=== PATIENT | male | born 1970 | race African-American/Black ===

== ENCOUNTER 2017-07-28 12:04 | Observation (INO) | payer SELFPAY ==
[~2017-07-28] VITALS: Ht 175.3 cm; Wt 127.2 kg
[~2017-07-28 12:04] MED LIST: COUMADIN7.5 MG PO; ENDOCET 5-3251 EACH PO; FLEXERIL10 MG PO; HYDROCODON-ACE1 EAC7 PO; IBUPROFEN800 MG PO; IRON325 M1 PO; LISINOPRIL20 MG PO; MEDROL DOSEPAK4 MG PO; NAPROXEN500 MG PO; NITROGLYCERIN0.4 MG SL; TRAMADOL HCL50 MG PO; ULTRAM50 MG PO
[2017-07-28 12:49] LABS: HEMATOCRIT 48.3 % (38.0-50.0); MCH 29.7 PG (29.0-34.0); MCHC 33.5 G/DL (30.0-36.0); MCV 88.5 FL (86-99); MEAN PLAT.VOLUME 9.5 uM^3 (9.0-12.4); PLATELET COUNT 258 K/uL (156-360); RBC DIS.WIDTH-CV 12.3 % (11.8-14.6); RBC DIS.WIDTH-SD 39.7 % (39-53); RED BLOOD COUNT 5.46 M/uL (4.00-5.50); WHITE BLOOD COUNT 11.2 K/uL (4.1-10.2)
[2017-07-28 12:58] LABS: CHLORIDE 103 mEq/L (99-109); POTASSIUM 4.3 mEq/L (3.7-5.4); SODIUM 141 mEq/L (136-147)
[2017-07-28 13:00] LABS: GLUCOSE 97 mg/dL (70-99)
[2017-07-28 13:01] LABS: ANION GAP 13 MEQ/L (2-14)
[2017-07-28 13:04] LABS: GFR ESTIMATE (CALCULATED) > 59 mL/min/; UREA NITROGEN (BUN) 13 mg/dL (9-23)
[2017-07-28 13:10] LABS: TROP-I INTERPRETATION NEGATIVE; TROPONIN-I 0.02 ng/mL (0.0-0.30)
[2017-07-28] MEDS ORDERED: HYDROCHLOROTHIA25 MG PO (17:28)
[2017-07-28] MEDS ORDERED: DAILY VALUE1 EACH PO (17:28)
[2017-07-28 18:33] LABS: HDL CHOLESTEROL 54 MG/DL (Desirable>=40); LDL CHOLESTEROL 152 mg/dL (Desirable<100); NON-HDL CHOLESTEROL 163 mg/dL (Desirable<160); TOTAL CHOLESTEROL 217 mg/dL (Desirable<200); TRIGLYCERIDES 53 MG/DL (Normal: <150)
[2017-07-28 19:17] VITALS: BP 181/77
[2017-07-28 19:27] LABS: Estimated Average Glucose 123 mg/dL (70-123); HEMOGLOBIN A1c (GLYCOHEMOGLOB) 5.9 % HGB (Below 5.7)
[2017-07-28 19:36] LABS: AMPHETAMINES QUANT VALUE 0 NG/ML; BARBITUATES QUANT VALUE 0 NG/ML; BENZODIAZEPINES QUANT VALUE 0 NG/ML; BENZODIAZEPINES, URINE SCREEN Negative (200 ng/mL); MARIJUANA QUANT VALUE 0 NG/ML; OPIATES QUANTITATIVE VALUE 0 NG/ML; PHENCYCLIDINE QUANT VALUE 0 NG/ML
[2017-07-28 19:41] LABS: TROP-I INTERPRETATION NEGATIVE; TROPONIN-I 0.02 ng/mL (0.0-0.30)
[2017-07-29 00:28] VITALS: BP 165/88
[2017-07-29 01:08] LABS: TROP-I INTERPRETATION NEGATIVE; TROPONIN-I 0.02 ng/mL (0.0-0.30)
[2017-07-29 04:20] VITALS: BP 150/81
[2017-07-29 08:14] VITALS: BP 138/77
[2017-07-29 09:58] LABS: POINT-OF-CARE METER ID UU13113700
[2017-07-29 12:16] VITALS: BP 143/70
[2017-07-29 12:41] LABS: POINT-OF-CARE METER ID UU13113700
[2017-07-29 17:42] LABS: POINT-OF-CARE METER ID UU13113700
[2017-07-29 19:10] LABS: POINT-OF-CARE METER ID UU13113700
[2017-07-29 20:30] VITALS: BP 144/85
[2017-07-29 23:38] VITALS: BP 159/70
[2017-07-30 03:35] VITALS: BP 165/102
[2017-07-30 07:00] VITALS: BP 162/96
[2017-07-30 11:17] VITALS: BP 173/84
[2017-07-30 12:29] LABS: POINT-OF-CARE METER ID UU13113700
[2017-07-30] MEDS ORDERED: PRAVASTATIN SOD80 MG PO (15:31)
[2017-07-30] MEDS ORDERED: ASPIR-LOW81 MG PO (15:32)
[2017-07-30] MEDS ORDERED: NICOTINE PATCH1 EACH TD (15:34)
[2017-07-30 16:11] VITALS: BP 192/88
[2017-07-30 17:37] LABS: POINT-OF-CARE METER ID UU13113700
== END 2017-07-30 18:33 | disposition home or self-care (01) ==
LOC: EME 12:04 → EDOF 16:54 → 5WEST 16:54 → ENRESERV 16:57 → 5WEST 18:57
PROVIDERS: Internal Medicine
DX: R07.89 Other chest pain (principal); I16.0 Hypertensive urgency; I10 Essential (primary) hypertension; R00.2 Palpitations; E78.5 Hyperlipidemia, unspecified; F17.210 Nicotine dependence, cigarettes, uncomplicated; E66.9 Obesity, unspecified; Z82.49 Family history of ischemic heart disease and other diseases of the circulatory system; I49.3 Ventricular premature depolarization; G47.30 Sleep apnea, unspecified; M19.90 Unspecified osteoarthritis, unspecified site; Z80.0 Family history of malignant neoplasm of digestive organs; Z83.49 Family history of other endocrine, nutritional and metabolic diseases
CPT/HCPCS: 71020; 78452; 80048; 80061; 80306 90; 82948; 83036; 84443; 84484; 85027; 85379; 93005; 93017; 93306; 99281; 99285; A9500; G0378; J0360; J7030

== ENCOUNTER 2018-04-26 15:27 | Emergency (ER) | payer BC ==
[~2018-04-26] VITALS: Ht 177.8 cm; Wt 130.0 kg
[~2018-04-26 15:27] MED LIST changes: +ASPIR-LOW81 MG PO; +DAILY VALUE1 EACH PO; +HYDROCHLOROTHIA25 MG PO; +NICOTINE PATCH1 EACH TD; +PRAVASTATIN SOD80 MG PO
[2018-04-26] MEDS ORDERED: TYLENOL WITH C1 EACH PO (16:44)
[2018-04-26 17:30] VITALS: BP 164/92
== END 2018-04-26 17:30 | disposition home or self-care (01) ==
LOC: EME 15:27
DX: T25.122A Burn of first degree of left foot, initial encounter (principal); X19.XXXA Contact with other heat and hot substances, initial encounter; M79.671 Pain in right foot; I10 Essential (primary) hypertension; Z87.891 Personal history of nicotine dependence
CPT/HCPCS: 99281; 99284